=== PATIENT | male | born 1955 | race Caucasian/White ===

== ENCOUNTER 2019-05-18 15:24 | Inpatient (IN) | payer OTHER ==
[2019-05-18] MEDS ORDERED: Morphine 4 MG/ML VIAL ONE (16:54)
[2019-05-18] MEDS ORDERED: Morphine 2 MG/ML SYRINGE SLOW IVP PRN (21:14)
[2019-05-18] MEDS ORDERED: Sodium Chloride 0.9% 1,000 ML IV SCH (21:15)
[2019-05-18] MEDS: Morphine 4 MG/ML VIAL SLOW IVP PRN (21:22)
[2019-05-18] MEDS ORDERED: Ondansetron PF 4 MG/2 ML Vial IVP PRN (21:44)
[2019-05-18] MEDS ORDERED: Bisacodyl 5 MG TAB PO PRN (21:44)
[2019-05-18] MEDS ORDERED: Piperacillin/Tazobactam 4.5 GM in Sodium Chloride 0.9% 100 ML IVPB SCH (22:00)
[2019-05-18] MEDS: Sodium Chloride 0.9% 1,000 ML IV SCH (22:20)
--- NOTE | 2019-05-18 22:22 | HP ---
PRIMARY CARE PROVIDER: None, the patient is from the [place] system. CHIEF COMPLAINT: Gas in urine. HISTORY OF PRESENT ILLNESS: Mr. To is a pleasant 63-year-old gentleman, who was seen at [facility] on May 18, 2019, following transfer from [facility]. At the time of my examination, the patient was upset that he is being asked the same questions by multiple providers, he is however answering questions. Collateral history was obtained from review of medical records and discussion with emergency room physician. The patient at this time denies any past medical problems. However, he told the physician at [facility] that he has a history of bowel, bladder fistula, and diverticulosis, and was hospitalized for this at the [facility]. He told me that following lithotripsy in the past, he had blood in the stool, and he subsequently had right inguinal hernia repair. This was followed by constipation and when he strained at stool, he had what appears to be rectal prolapse. He reports that all those issues have resolved. Over the last 5 days, he has had abdominal pain over the left upper and lower quadrants. He is unable to describe the pain in further detail. He reports that today morning he woke up in sweat. He also reports that today he started noticing gas, when he tried to urinate. He therefore presented to the emergency room. He also reports having low-grade fever last night. He reported decreased appetite. REVIEW OF SYSTEMS: All systems were reviewed and found to be negative except for the pertinent positives mentioned above. PAST MEDICAL HISTORY: Query diverticular disease, query bowel, bladder fistula , and nephrolithiasis. PAST SURGICAL HISTORY: Fourteen spinal surgeries, three lithotripsies, and inguinal hernia surgery. SOCIAL HISTORY: The patient denies tobacco use, alcohol use, or recreational drug use. FAMILY HISTORY: Negative for premature coronary artery disease. ALLERGIES: NO KNOWN DRUG ALLERGIES. CURRENT MEDICATIONS: None. PHYSICAL EXAMINATION: GENERAL: On examination, Mr. To is awake and alert, not in acute distress. VITAL SIGNS: Blood pressure is 134/78, pulse 65, respiratory rate 15, and oxygen saturation 98% on room air. He is afebrile. EYES: No scleral icterus, no conjunctival pallor. ENT: Moist mucosal membranes. No oropharyngeal erythema or exudates. NECK: Supple, nontender, trachea is midline. RESPIRATORY: Accessory muscles of breathing are not active. Chest wall movements are symmetric bilaterally. LUNGS: Clear to auscultation without wheeze, rhonchi, or crepitations. CARDIOVASCULAR: S1 and S2 are heard, regular. Peripheral pulses palpable. ABDOMEN: Soft, he has left upper and left lower quadrant tenderness, no guarding or rigidity. Bowel sounds are heard. NEUROLOGIC: Cranial nerves 2 through 12 are intact. MUSCULOSKELETAL: Power is 5/5 in all 4 extremities. SKIN: No rashes. LYMPHATIC: No cervical lymphadenopathy. PSYCHIATRIC: Normal affect, the patient mildly upset, oriented to person, place , and time. LABORATORY DATA: Mr. To's labs and investigations were reviewed. CT scan of the abdomen and pelvis done at [facility] indicated diverticulitis with known bowel, bladder fistula. He had mild hyponatremia with sodium 135, normal potassium, normal creatinine of 1.2, unremarkable LFTs, and normal lipase. White count, hemoglobin, and platelet count were normal. ASSESSMENT AND PLAN: Mr. To is a pleasant 63-year-old gentleman, who was seen at [facility] on May 18, 2019, following transfer from the emergency room at [place]. His problem list includes: 1. Diverticulitis: Mr. To is presenting with recurrent diverticulitis with bowel, bladder fistula. He was mainly transferred here for surgical opinion. He received Zosyn at [facility] emergency room, which I will continue. Emergency room physician already discussed this case with General Surgery Service, who have recommended admission to Hospitalist Service. 2. Nephrolithiasis: The patient has a history of nephrolithiasis. Nil acute. 3. Pain medications and intravenous fluids. LEVEL OF RISK: Moderate. LEVEL OF COMPLEXITY: Moderate. Job ID: [id number] [facility]
[2019-05-18] MEDS: Acetaminophen 325 MG TAB PO PRN (22:26)
[2019-05-18 23:40] VITALS: BMI 22.6
[2019-05-19] MEDS: Morphine 4 MG/ML VIAL SLOW IVP PRN (02:32)
[2019-05-19] MEDS: Acetaminophen 325 MG TAB PO PRN (02:32)
[2019-05-19 05:11] LABS: #Basophils 0.1 thou/uL (0.0-0.2); #Eosinphils 0.2 thou/uL (0.0-0.7); #Lymphocytes 1.9 thou/uL (1.20-3.40); #Monocytes 0.9 thou/uL (0.11-0.59); #Neutrophils 3.9 thou/uL (1.40-6.50); %Basophils 0.8 % (0.0-1.0); %Eosinophils 3.2 % (0.0-10.0); %Lymphocytes 27.3 % (21.0-51.0); %Monocytes 12.3 % (0.0-10.0); %Neutrophils 56.5 % (42.0-75.0); Hemoglobin 13.2 g/dL (14.0-18.0); Mean Corpuscular HGB CONC 33.3 g/dL (32.0-36.0); Mean Corpuscular Hemoglobin 28.8 pg (27.0-31.0); Mean Corpuscular Volume 86.3 fL (78.0-98.0); Mean Platelet Volume 6.6 fL (7.4-10.4); Platelet Count 224 thou/uL (130-400); RBC Distribution Width 11.5 % (11.5-14.5); White Blood Cell (WBC) Count 6.9 thou/uL (4.8-10.8)
[2019-05-19 05:35] LABS: Anion Gap 12 mmol/L (10-20); BUN (Urea Nitrogen) 14 mg/dL (8.4-25.7); Calc. Creatinine Clearance 78 mL/min (70-130); Calcium 8.4 mg/dL (7.8-10.44); Carbon Dioxide 23 mmol/L (23-31); Chloride 104 mmol/L (98-107); Estimated GFR-MDRD 78; Glucose 84 mg/dL (80-115); Potassium 4.5 mmol/L (3.5-5.1); Sodium 134 mmol/L (136-145)
[2019-05-19] MEDS ORDERED: Piperacillin/Tazobactam 4.5 GM in Sodium Chloride 0.9% 100 ML IVPB SCH (06:00)
--- NOTE | 2019-05-19 08:37 | PDOC.GSPN ---
Surgery Progress Note: Subj - Subjective Narrative: Mr. To is a 63 M transferred here from [facility] on 05/18/2019 for surgical consult. He reports that he is "hanging in there" this AM. He reports continued abdominal pain, dysuria, and a headache this morning. He says the morphine did not work last night and he has now been taking acetaminophen for pain. He is able to localize his pain to the LLQ and suprapubic area, rated as 3/10. He has been voiding in the toilet and says his pee "looks like coke," and he can feel air when he urinates. He denies nausea, vomiting since Sunday. He denies fever, chills this AM. Surgery Progress Note: Obj - Vital signs Vital signs: Vital Signs - Most Recent Temp Pulse Resp BP Pulse Ox 97.8 F 61 12 111/58 L 97 05/19/19 07:45 05/19/19 07:45 05/19/19 07:45 05/19/19 07:45 05/19/19 07:45 - Physical Exam General: moderate distress (awake and alert, though uncomfortable) Cardiovascular: regular rate and rhythm Respiratory: clear to auscultation Abdomen: nondistended, positive bowel sounds, tender (LLQ and suprapubic tenderness) Surgery Progress Note: Results - Labs Result Diagrams: 05/19/19 04:47 05/19/19 04:47 Lab results: Laboratory Results - last 24 hr 05/19/19 05/19/19 04:47 04:47 WBC 6.9 RBC 4.60 L Hgb 13.2 L Hct 39.7 L MCV 86.3 MCH 28.8 MCHC 33.3 RDW 11.5 Plt Count 224 MPV 6.6 L Neutrophils % 56.5 Lymphocytes % 27.3 Monocytes % 12.3 H Eosinophils % 3.2 Basophils % 0.8 Neutrophils # 3.9 Lymphocytes # 1.9 Monocytes # 0.9 H Eosinophils # 0.2 Basophils # 0.1 Sodium 134 L Potassium 4.5 Chloride 104 Carbon Dioxide 23 Anion Gap 12 BUN 14 Creatinine 0.98 Estimated GFR (MDRD) 78 Glucose 84 Calcium 8.4 Surgery Progress Note: A/P - Plan Plan: Mr. To is a 63 M transferred here from [facility] on 05/18/2019 for surgical consult. 1. CT done at [place] indicative of diverticulitis with known bladder fistula. Discuss potential surgical treatment. 2. Patient currently NPO. Continue for now. 3. Continue antibiotics and IV fluids. 4. Continue acetaminophen for pain.
[2019-05-19] MEDS ORDERED: Enoxaparin Sodium 40 MG/0.4 ML SYRINGE SC SCH (09:00)
--- NOTE | 2019-05-19 09:32 | PDOC.HOSPP ---
- Subjective Encounter Date: 05/19/19 - Objective Vital Signs & Weight: Vital Signs (12 hours) Temp Pulse Resp BP Pulse Ox 05/19/19 07:45 97.8 F 61 12 111/58 L 97 05/19/19 04:02 98.4 F 54 L 16 96 05/19/19 00:14 98.6 F 56 L 16 120/79 96 05/18/19 21:44 97 Weight Weight 153 lb 5 oz I&O: 05/18/19 05/19/19 05/20/19 06:59 06:59 06:59 Intake Total 1480 Balance 1480 Result Diagrams: 05/19/19 04:47 05/19/19 04:47 Hospitalist ROS - Medication Medications: Active Medications Generic Name Dose Route Start Last Admin Trade Name Freq PRN Reason Stop Dose Admin Acetaminophen 650 mg 05/18/19 21:44 05/19/19 02:32 Tylenol PO 650 mg Q4H PRN Administration Headache/Fever/Mild Pain (1-3) Enoxaparin Sodium 40 mg 05/19/19 09:00 05/19/19 07:57 Lovenox SC Not Given 0900 MAGO Sodium Chloride 1,000 mls @ 70 mls/hr 05/18/19 22:00 05/18/19 22:20 Normal Saline 0.9% IV 1,000 mls .[id number] MAGO Administration Piperacillin Sod/Tazobactam 100 mls @ 200 mls/hr 05/19/19 06:00 05/19/19 05: 35 Sod 4.5 gm/ Sodium Chloride IVPB 100 mls Q8HR MAGO Administration Morphine Sulfate 4 mg 05/18/19 21:14 05/19/19 02:32 Morphine SLOW IVP 4 mg Q4H PRN Administration Severe Pain (6-10) Hosp A/P (1) Acute diverticulitis Code(s): K57.92 - DVTRCLI OF INTEST, PART UNSP, W/O PERF OR ABSCESS W/O BLEED Status: Acute (2) Fistula, 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
[2019-05-19 11:27] VITALS: BP 111/72; TEMP 98.9
[2019-05-19] MEDS: Sodium Chloride 0.9% 1,000 ML IV SCH (11:48)
--- NOTE | 2019-05-19 15:00 | PDOC.EVN ---
Event Note - Event Note Event Note: Patient demanded to go AMA, Dr. Good was notified. Patient was gone by the time I heard about it and went to see him. Discharge Summary Dictated #[id number]
--- NOTE | 2019-05-19 16:15 | DIS ---
DATE OF ADMISSION: 05/18/2019 DATE OF DISCHARGE: 05/19/2019 PRIMARY CARE PHYSICIAN: [facility] system. REASON FOR ADMISSION: Diverticulitis. DIAGNOSIS AT DISCHARGE: Diverticulitis. CONSULTATIONS: General Surgery, Dr. Good. SUMMARY OF HOSPITAL COURSE: This is a 63-year-old man, who was transferred from [place] due to abdominal pain and oozing of gas in his urine. He was diagnosed with diverticulitis along with what appeared to be an enterovesical fistula that was pre-existing. In the emergency room, did talk with General Surgery, who asked that we admit the patient. The patient was admitted to the hospital. He was given pain medications. He stated the morphine did not help. He was just using Tylenol for pain. On next day, he was seen by the surgical service. Sometime after this, he decided that he wanted to leave against medical advice. I was not contacted, but Dr. Good with Surgery was contacted and he instructed to the patient, if he was leaving AMA should follow up with the [facility] to get this taking care of. The patient did end up leaving against medical advice prior to my notification this morning. Job ID: [id number]
[2019-05-19] MEDS ORDERED: Famotidine/PF 20 mg/2ml Vial SLOW IVP SCH (21:00)
== END 2019-05-19 12:37 | disposition left against medical advice (07) | DRG 392 ==
LOC: ERS 15:24 → SURG B 21:01
PROVIDERS: ADMIT Internal Medicine; ATTEND Internal Medicine
DX: K57.92 Diverticulitis of intestine, part unspecified, without perforation or abscess without bleeding (principal); N32.1 Vesicointestinal fistula; N20.0 Calculus of kidney
CPT/HCPCS: 36415; 80048; 85025; 96361; 96374; J2270; J2543; J3490